=== PATIENT | female | born 1990 | race Two or more races ===

== ENCOUNTER 2016-04-26 07:53 | Emergency (ER) | payer SELFPAY ==
[2016-04-26 07:59] VITALS: BP 121/76; PULSE 84; TEMP 98; BMI 27.4
[2016-04-26] MEDS ORDERED: KETOROLAC TROMETHAMINE 60 MG/2 ML VIAL IM ONE (09:05)
--- NOTE | 2016-04-26 09:05 | PDOC ---
History of Present Illness - General Chief Complaint: Pain Stated Complaint: BACK PAIN Time Seen by Provider: 04/26/16 08:16 History Source: Patient Exam Limitations: No Limitations - History of Present Illness Initial Comments: CHIEF COMPLAINT: 25 y/o afebrile female with no significant PMH c/o right sided low back pain for the past 2 weeks. HISTORY OF PRESENT ILLNESS: The patient denies fall or trauma to back. She states the pain is intermittent and seemed to get better after she exercised a few times. She took ibuprofen once a few days ago. She states yesterday and today it got worse and goes down her right leg when she bends over. Vital signs on arrival are within normal limits. REVIEW OF SYSTEMS: GENERAL/CONSTITUTIONAL: No fever/chills. No weakness. No weight change. GENITOURINARY: No dysuria, frequency, or change in urination. MUSCULOSKELETAL: No joint or muscle swelling or pain. No neck pain. +right sided low back pain SKIN: No rash or easy bruising. NEUROLOGIC: No headache, vertigo, loss of consciousness, or loss of sensation. PHYSICAL EXAM: GENERAL: The patient is awake, alert, and fully oriented, in no acute distress. She is well appearing and ambulatory. HEAD: Normal with no signs of trauma. EYES: Pupils equal, round and reactive to light, extraocular movements intact, sclera anicteric, conjunctiva clear. EXTREMITIES: Normal range of motion, no edema. BACK: No midline lumbar spine TTP or step offs. Pain reproduced with flexion of lumbar spine and when stretching right gluteal muscles. NEUROLOGICAL: Normal speech, normal gait. PSYCH: Normal mood, normal affect. SKIN: Warm, Dry, normal turgor, no rashes or lesions noted. Past History - Past Medical History Allergies/Adverse Reactions: Allergies Allergy/AdvReac Type Severity Reaction Status Date / Time terconazole [From Terazol 3] Allergy Severe Hives Verified 04/26/16 07:59 bee pollen [Bee Pollen] Allergy Verified 04/26/16 07:59 Home Medications: Ambulatory Orders NK [No Known Home Medication] 04/26/16 Anemia: No Asthma: No Cancer: No Cardiac Disorders: No CVA: No COPD: No CHF: No Dementia: No Diabetes: No GI Disorders: No Disorders: No HTN: No Hypercholesterolemia: No Liver Disease: No Seizures: No Thyroid Disease: No - Reproductive History (#): 1 Para: 0 Therapeutic (s) & number: No - Psycho/Social/Smoking Cessation Hx Anxiety: No Suicidal Ideation: No Smoking Status: No Smoking History: Never smoked Have you smoked in the past 12 months: No Number of Cigarettes Smoked Daily: 0 Cigars Per Day: 0 Information on smoking cessation initiated: No Hx Alcohol Use: No Drug/Substance Use Hx: No Substance Use Type: None Hx Substance Use Treatment: No *Physical Exam - Vital Signs Last Vital Signs Temp Pulse Resp BP Pulse Ox 98 F 84 18 121/76 98 04/26/16 07:57 04/26/16 07:57 04/26/16 07:57 04/26/16 07:57 04/26/16 07:57 Medical Decision Making - Medical Decision Making A/P: 25 y/o female with right sided low back pain and intermittent sciatica symptoms. Plan is as follows: 1. hcg hcg - negative 2. IM Toradol The patient was shown some stretching exercises to perform at home multiple times per day. INstructed her to take 600mg of Ibuprofen every 6 hours with food for pain and apply heating pad to the affected area when not stretching. Instructed her to f/u with Dr. Mcclellan if no improvement in symptoms within 1 week. The patient verbalizes understanding of all instructions, has no further questions and is awaiting discharge. *DC/Admit/Observation/Transfer Diagnosis at time of Disposition: Low back pain Qualifiers: Chronicity: acute Back pain laterality: right Sciatica presence: with sciatica Sciatica laterality: sciatica of right side Qualified Code(s): M54.41 - Lumbago with sciatica, right side - Discharge Dispostion Disposition: HOME Condition at time of disposition: Good - Referrals Referrals: Humberto Mcclellan [Primary Care Provider] - 1 week - Patient Instructions Printed Discharge Instructions: DI for Low Back Pain, DI for Back Pain With Sciatica Additional Instructions: Discharge Instructions: -Take 600mg of Ibuprofen every 6 hours with food -Perform stretching exercises multiple times per day to help relieve pain -Apply heating pad to lower back to help with healing -Follow up with Dr. Mcclellan in 1 week if no improvement in symptoms
[2016-04-26] MEDS ORDERED: KETOROLAC TROMETHAMINE 60 MG/2 ML VIAL ONE (09:14)
== END 2016-04-26 09:20 | disposition home or self-care (01) ==
LOC: JERFT 07:53
PROC: 3E0233Z Introduction of Anti-inflammatory into Muscle, Percutaneous Approach (ICD-10-PCS; principal; 2016-04-26)
DX: M54.41 Lumbago with sciatica, right side (principal)
CPT/HCPCS: 84703; 99281-25

== ENCOUNTER 2019-01-26 15:57 | Emergency (ER) | payer OTHER ==
[2019-01-26 16:06] VITALS: BP 136/75; PULSE 104; TEMP 99.2; BMI 29.2
[2019-01-26] MEDS ORDERED: DEXAMETHASONE LIQUID 0.5 MG/5 ML PO ONE (16:25)
[2019-01-26] MEDS ORDERED: ACETAMINOPHEN 500 MG TABLET (FP) PO ONE (16:25)
--- NOTE | 2019-01-26 16:27 | PDOC ---
History of Present Illness - General Chief Complaint: Sore Throat Stated Complaint: COLD SYX Time Seen by Provider: 01/26/19 16:07 History Source: Patient Exam Limitations: No Limitations - History of Present Illness Initial Comments: 01/26/19 16:24 HISTORY OF PRESENT ILLNESS: 28-year-old woman without comorbidities who presents to the emergency department for evaluation of fevers, chills, headache , sore throat, myalgias and moist productive cough for the past 2 to 3 days. Patient also concerned that she has hoarse voice. Patient reports increased pain with swallowing which she describes as a burning sensation. Patient reports she is able to eat and drink without difficulty and has not had any shortness of breath or drooling. No recent travel or sick contacts. PAST MEDICAL HISTORY: Denies past medical history SURGICAL HISTORY: Denies ALLERGIES: No known drug allergies REVIEW OF SYSTEMS General/Constitutional: +fever. Denies weakness, weight change. HEENT: Denies change in vision. Denies ear pain or discharge. +sore throat. Cardiovascular: Denies chest pain or shortness of breath. Respiratory: Moist productive cough. Denies wheezing, or hemoptysis. Gastrointestinal: Denies nausea, vomiting, diarrhea or constipation. Denies rectal bleeding. Genitourinary: Denies dysuria, frequency, or change in urination. Musculoskeletal: +myalgias. Denies neck or back pain. Skin and breasts: Denies rash or easy bruising. Neurologic: Denies headache, vertigo, loss of consciousness, or loss of sensation. Psychiatric: Denies depression or anxiety. Endocrine: Denies increased thirst. Denies abnormal weight change. Hematologic/Lymphatic: Denies anemia, easy bleeding, or history of blood clots. Allergic/Immunologic: Denies hives or skin allergy. Denies latex allergy. PHYSICAL EXAM General Appearance: Well-appearing, appropriately dressed. No apparent distress , no intoxication. HEENT: EOMI, PERRLA, normal voice, TMs retracted bilaterally. No conjunctival pallor. No photophobia, scleral icterus. Oropharynx erythematous without lesions or exudate. Cobblestoning noted in the posterior. No nasal discharge present. Neck: Supple. Trachea midline. No tenderness, rigidity, carotid bruit, stridor , or thyromegaly. Nontender anterior cervical lymphadenopathy present. Respiratory/Chest: Lungs CTAB. No shortness of breath, chest tenderness, respiratory distress, accessory muscle use. No crackles, rales, rhonchi, stridor , wheezing, dullness Cardiovascular: RRR. S1, S2. No JVD, murmur, bradycardia, tachycardia. Vascular Pulses: Dorsalis-Pedis (R): 2+, Dorsalis-Pedis (L): 2+ Gastrointestinal/Abdominal: Normal bowel sounds. Abdomen soft, non-distended. No tenderness or rebound tenderness. No organomegaly, pulsatile mass, guarding, hernia, hepatomegaly, splenomegaly. Musculoskeletal/Extremities: Normal inspection. FROM of all extremities, normal capillary refill. Pelvis Stable. No CVA tenderness. No tenderness to extremities, pedal edema, swelling, erythema or deformity. Integumentary: Appropriate color, dry, warm. No cyanosis, erythema, jaundice or rash Neurologic: development team lead II-XII intact. Fully oriented, alert. Appropriate mood/affect. Motor strength 5/5. No appreciable EOM palsy, facial droop or sensory deficit. 01/26/19 16:25 Past History - Past Medical History Allergies/Adverse Reactions: Allergies Allergy/AdvReac Type Severity Reaction Status Date / Time terconazole [From Terazol 3] Allergy Severe Hives Verified 04/26/16 07:59 bee pollen [Bee Pollen] Allergy Verified 04/26/16 07:59 Home Medications: Ambulatory Orders NK [No Known Home Medication] 04/26/16 Anemia: No Asthma: No Cancer: No Cardiac Disorders: No CVA: No COPD: No CHF: No Dementia: No Diabetes: No GI Disorders: No Disorders: No HTN: No Hypercholesterolemia: No Liver Disease: No Seizures: No Thyroid Disease: No - Reproductive History (#): 1 Para: 0 Therapeutic (s) & number: No - Psycho Social/Smoking Cessation Hx Smoking Status: No Smoking History: Never smoked Have you smoked in the past 12 months: No Number of Cigarettes Smoked Daily: 0 Cigars Per Day: 0 Hx Alcohol Use: No Drug/Substance Use Hx: No Substance Use Type: None Hx Substance Use Treatment: No *Physical Exam - Vital Signs Last Vital Signs Temp Pulse Resp BP Pulse Ox 99.2 F 104 H 19 136/75 100 01/26/19 16:01 01/26/19 16:01 01/26/19 16:01 01/26/19 16:01 01/26/19 16:01 Medical Decision Making - Medical Decision Making 01/26/19 16:26 A/P: 28-year-old woman with 2 days of flulike symptoms Influenza testing Tylenol 975 mg orally now Decadron 10 mg orally now Reassess 01/26/19 17:08 Influenza testing is negative. I will discharge patient home with supportive treatment of upper respiratory symptoms. I discussed the physical exam findings, ancillary test results and final diagnoses with the patient. I answered all of the patient's questions. The patient was satisfied with the care received and felt comfortable with the discharge plan and treatment plan. The patient will call their primary care physician within 24 hours to arrange follow-up and will return to the Emergency Department with any new, persistent or worsening symptoms. Discharge - Discharge Information Problems reviewed: Yes Clinical Impression/Diagnosis: Upper respiratory infection Qualifiers: URI type: unspecified viral URI Qualified Code(s): J06.9 - Acute upper respiratory infection, unspecified Condition: Stable Disposition: HOME - Admission No - Follow up/Referral - Patient Discharge Instructions Additional Instructions: Rest, drink lots of fluids: Teas, water, soups, Pedialyte Saltwater gargles Steamy showers/seem to face break up mucus Avoid contact with others until fevers and cough resolved Lots of handwashing and good hygiene Continue [id number] medications for symptomatic relief Tylenol or Motrin for fever and pain Followup with private physician in one to 2 days as needed Return to emergency department for worsened symptoms, fevers, dehydration - Post Discharge Activity
[2019-01-26] MEDS ORDERED: DEXAMETHASONE SOD PHOSPHATE 10 MG/1 ML VIAL ONE (16:30)
[2019-01-26] MEDS ORDERED: ACETAMINOPHEN 325 MG TABLET (FP) ONE (16:30)
== END 2019-01-26 17:15 | disposition home or self-care (01) ==
LOC: JERFT 15:57
DX: J06.9 Acute upper respiratory infection, unspecified (principal); Z88.8 Allergy status to other drugs, medicaments and biological substances; Z91.030 Bee allergy status
CPT/HCPCS: 87804; 99282-25